=== PATIENT | female | born 1995 | race Hispanic/Latino ===

== ENCOUNTER 2017-10-29 17:29 | Emergency (ER) | payer OTHER, SELFPAY ==
[2017-10-29] MEDS ORDERED: Ketorolac Tromethamine 30 MG/ML VIAL ONE (17:44)
[2017-10-29] MEDS ORDERED: Lorazepam 2 MG/ML VIAL ONE (17:44)
[2017-10-29] MEDS ORDERED: Fentanyl 100 MCG/2 ML VIAL ONE (18:20)
--- NOTE | 2017-10-30 11:56 | RAD ---
RIGHT ANKLE 3 VIEWS: DATE: 10/23/17. FINDINGS: The slightly comminuted fracture of the lateral malleolus is seen with little displacement. In addit ion, there is a fracture from the lateral articular surface of the talar dome. The ankle mortise hairston s not seem widened. Medial malleolus and posterior tibia appear intact. IMPRESSION: Fractures of the lateral malleolus and of the articular surface of the talus laterally. POS: HOME
--- NOTE | 2017-10-30 11:59 | RAD ---
LEFT THUMB 3 VIEWS: DATE: 10/29/17. FINDINGS: A fracture is present at the base of the proximal phalanx of the thumb radial side that extends into the 1st MCP joint. There is slight displacement of the fracture fragment. The remainder of the visi ble portions of the hand appeared intact. IMPRESSION: Intraarticular fracture at the base of the proximal phalanx of the thumb. POS: HOME
== END 2017-10-29 19:15 | disposition home or self-care (01) ==
LOC: BURERS 17:29
DX: S82.61XA Displaced fracture of lateral malleolus of right fibula, initial encounter for closed fracture (principal); S62.512A Displaced fracture of proximal phalanx of left thumb, initial encounter for closed fracture; E66.9 Obesity, unspecified; E28.2 Polycystic ovarian syndrome; F41.9 Anxiety disorder, unspecified; F32.9 Major depressive disorder, single episode, unspecified; V47.6XXA Car passenger injured in collision with fixed or stationary object in traffic accident, initial encounter
CPT/HCPCS: 26720; 27786; 94760; 96374; 96375; J1885; J2001; J2060; J3010